=== PATIENT | female | born 1970 | race Hispanic/Latino ===

== ENCOUNTER 2017-11-28 18:02 | Emergency (ER) | payer SELFPAY ==
[2017-11-28 18:23] VITALS: BP 163/81; TEMP 98.1; O2SAT 99
--- NOTE | 2017-11-28 18:48 | ED.PDOC ---
History of Present Illness - General Chief Complaint: Skin/Abrasion/Tear Stated Complaint: Rectal irritation Time Seen by Provider: 11/28/17 18:46 Source: patient Exam Limitations: language barrier - mild - History of Present Illness Initial Comments: the patient is a 47-year-old female presenting to the emergency room with what appears to be a large thrombosed external hemorrhoid. She has apparently had this for several weeks. She has occasionally had some blood in the stool with from it. She has apparently had a hemorrhoid in the past. The hemorrhoid here today is approximately 1 inch in length and a half inch in diameter. It is not currently bleeding. It does obviously contain clots. The patient is not having any symptoms of any anemia. She has had constipation problems in the past. Timing/Duration: 1 week Severity: moderate Improving Factors: nothing Worsening Factors: movement Associated Symptoms: denies symptoms Allergies/Adverse Reactions: Allergies NO KNOWN ALLERGY Allergy (Verified 11/28/17 18:38) Home Medications: Ambulatory Orders Hydrocortisone 25 mg Supp [Anusol-HC Suppository] 1 ea [place] Q8HR #20 sup 11/28/17 Review of Systems - Review of Systems Constitutional: States: no symptoms reported EENTM: States: no symptoms reported Respiratory: States: no symptoms reported Cardiology: States: no symptoms reported Gastrointestinal/Abdominal: States: see HPI Genitourinary: States: no symptoms reported Musculoskeletal: States: no symptoms reported Skin: States: no symptoms reported Neurological: States: no symptoms reported Endocrine: States: no symptoms reported All other Systems: No Change from Baseline Past Medical History (General) - Patient Medical History Hx Stroke: No Hx Congestive Heart Failure: No Hx Diabetes: No Surgical History: Hysterectomy - Vaccination History Hx Influenza Vaccination: No Hx Pneumococcal Vaccination: No - Social History Hx Tobacco Use: No Family Medical History - Family History Mother Family History: No Known Living Status: Still Living Physical Exam - Physical Exam General Appearance: Alert, Comfortable, No apparent distress Eye Exam: bilateral normal Ears, Nose, Throat: hearing grossly normal, normal ENT inspection Respiratory: no respiratory distress, no accessory muscle use Cardiovascular/Chest: normal peripheral pulses, no edema Gastrointestinal/Abdominal: non tender, soft Rectal Exam: other - the patient has a large external hemorrhoid at approximately 9:00. It is not bleeding. It does obviously contain a clot.digital rectal exam is not performed secondary to obvious pain. 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 The patient is to return to the emergency room if she has any significant bleeding. She can expect a small amount of blood with bowel movements for the next week or so. She is not having any symptoms of anemia currently. The patient needs to increase the fiber in her diet either with leafy vegetables or fibrous fruits. Celery, dary , apples, broccoli, Fall peppers, green beans, carrots are all good sources of fiber. Additionally she can take either FiberCon or Metamucil daily. She should also take MiraLAX 17 g 3 days a week for the next couple of months. This will help prevent any constipation and help keep further hemorrhoids from forming. She will be written for Anusol suppositories to use for the next couple of weeks. Additionally she can use Preparation H on the outside for 5 times daily for the next few weeks to help with the current hemorrhoid. The patient was offered hemorrhoidectomy here in the emergency room however has deferred. If she changes her mind and she can contact the local general surgeon to have it done or her primary care doctor. ER warnings were again given for any uncontrolled bleeding. Departure - Departure Clinical Impression: External hemorrhoid, thrombosed Disposition: Discharge to Home or Self Care Condition: Fair Departure Forms: ED Discharge - Pt. Copy, Patient Portal Self Enrollment Instructions: DI for Hemorrhoids Diet: regular diet - High-fiber Activity: increase activity as tolerated Referrals: ERIN MARTINEZ PA [Primary Care Provider] - 1-2 Weeks Prescriptions: Hydrocortisone 25 mg Supp [Anusol-HC Suppository] 1 ea WI Q8HR #20 sup Home Medications: Ambulatory Orders Hydrocortisone 25 mg Supp [Anusol-HC Suppository] 1 ea WI Q8HR #20 sup 11/28/17 Additional Instructions: the patient is a 47-year-old female presenting to the emergency room secondary to a large thrombosed external hemorrhoid. The patient is to return to the emergency room if she has any significant bleeding. She can expect a small amount of blood with bowel movements for the next week or so. She is not having any symptoms of anemia currently. The patient needs to increase the fiber in her diet either with leafy vegetables or fibrous fruits. Celery, dary , apples, broccoli, Fall peppers, green beans, carrots are all good sources of fiber. Additionally she can take either FiberCon or Metamucil daily. She should also take MiraLAX 17 g 3 days a week for the next couple of months. This will help prevent any constipation and help keep further hemorrhoids from forming. She will be written for Anusol suppositories to use for the next couple of weeks. Additionally she can use Preparation H on the outside for 5 times daily for the next few weeks to help with the current hemorrhoid. The patient was offered hemorrhoidectomy here in the emergency room however has deferred. If she changes her mind and she can contact the local general surgeon to have it done or her primary care doctor. ER warnings were again given for any uncontrolled bleeding. Print Language: Guatemalan
== END 2017-11-28 19:08 | disposition home or self-care (01) ==
LOC: ER 18:02
DX: K64.5 Perianal venous thrombosis (principal)

== ENCOUNTER 2020-10-15 17:05 | Emergency (ER) | payer SELFPAY ==
--- NOTE | 2020-10-15 18:24 | RAD ---
EXAM: Chest,1 View CLINICAL INDICATION: Chest pain COMPARISON: There is no previous study for comparison. FINDINGS: A single view of the chest was obtained. The heart size is normal. The pulmonary vascularity is unremarkable. The lungs are clear. There is no consolidation, infiltrate, pleural effusion, or pneumothorax. IMPRESSION: No evidence of active pulmonary disease. Electronically signed by: Srinivas Heredia MD 10/15/2020 6:22 PM [facility]
--- NOTE | 2020-10-15 19:10 | ED.PDOC ---
History of Present Illness - General Chief Complaint: Respiratory Problem Stated Complaint: chest wall pain Time Seen by Provider: 10/15/20 17:48 Source: patient, RN notes reviewed, Vital Signs reviewed Exam Limitations: no limitations - History of Present Illness Initial Comments: Patient is a 50-year-old female who presents with complaints of left chest wall pain and numbness intermittently in her left arm as well as some intermittent shortness of breath. This all started yesterday. Patient is also complained of some mild shortness of breath. Nothing seems to make it better or worse. It waxes and wanes in intensity. It is intermittent in nature. Patient diagnosed with Covid about 1 week ago. Timing/Duration: 24 hours, changing over time, intermittent Severity: moderate Improving Factors: nothing Worsening Factors: nothing Associated Symptoms: chest pain, shortness of breath Allergies/Adverse Reactions: Allergies NO KNOWN ALLERGY Allergy (Verified 11/28/17 18:38) Home Medications: Ambulatory Orders Hydrocortisone 25 mg Supp [Anusol-HC Suppository] 1 ea [place] Q8HR #20 sup 11/28/17 Methylprednisolone [Medrol Dose Nj] 4 mg PO DAILY 6 Days #21 tab 10/15/20 Review of Systems - Review of Systems Constitutional: States: see HPI, malaise. Denies: chills, diaphoresis, fever, w eakness EENTM: States: no symptoms reported. Denies: eye pain, blurred vision, double vision Respiratory: States: see HPI, short of breath. Denies: cough, wheezing Cardiology: States: see HPI, chest pain. Denies: palpitations, syncope Gastrointestinal/Abdominal: States: no symptoms reported. Denies: abdominal pain, diarrhea, nausea, vomiting Genitourinary: States: no symptoms reported. Denies: dysuria, frequency Musculoskeletal: States: no symptoms reported. Denies: back pain, joint pain, neck pain Skin: States: no symptoms reported. Denies: change in color, rash Neurological: States: see HPI, numbness - intermittently in left arm.. Denies: tingling, tremors, weakness Endocrine: States: no symptoms reported. Denies: increased hunger, increased thirst, increased urine Hematologic/Lymphatic: States: no symptoms reported. Denies: blood clots, easy bleeding All other Systems: Reviewed and Negative Past Medical History (General) - Patient Medical History Hx Stroke: No Hx Congestive Heart Failure: No Hx Diabetes: No - Vaccination History Hx Influenza Vaccination: No Hx Pneumococcal Vaccination: No - Social History Hx Tobacco Use: No Family Medical History - Family History Mother Family History: No Known Living Status: Still Living Physical Exam - Physical Exam General Appearance: Alert, Anxious, No apparent distress, Well Developed, Well Groomed, Well Hydrated, Well Nourished Eye Exam: bilateral normal Ears, Nose, Throat: hearing grossly normal, normal ENT inspection, normal pharynx Neck: full range of motion, supple Respiratory: chest non-tender, lungs clear, normal breath sounds, no respiratory distress, no accessory muscle use Cardiovascular/Chest: normal peripheral pulses, regular rate, rhythm, no edema, no gallop, no JVD, no murmur Progress - Progress Progress: Differential diagnosis: Acute VA, pneumonia, Covid side effects, CVA among others. 10/15/20 19:27 Patient's lab work is unremarkable. Chest x-ray does not show any pneumonia. EKG does not indicate cardiac ischemia and with a negative troponin highly unlikely to be ACS. Patient has a normal D-dimer. I suspect she does not have PE. I believe these are probably side effects from having Covid. Plan on discharge home with follow-up with PCP. 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 Additionally, she has some mild tenderness to palpation along the left side of her cervical spine. I discussed this plan of care with the patient she voices understanding and agreement. Fercho Sampson M.D. #[id number] - Results/Orders Results/Orders: EKG performed 15 October 2020 at 1715 hrs.: Normal sinus rhythm at 71 bpm, normal axis deviation, no ST or T wave changes concerning for acute ischemia, normal EKG. No comparison EKG available at this time. EXAM: Chest,1 View CLINICAL INDICATION: Chest pain COMPARISON: There is no previous study for comparison. FINDINGS: A single view of the chest was obtained. The heart size is normal. The pulmonary vascularity is unremarkable. The lungs are clear. There is no consolidation, infiltrate, pleural effusion, or pneumothorax. IMPRESSION: No evidence of active pulmonary disease. Electronically signed by: Srinivas Heredia MD 10/15/2020 6:22 PM CAD ENGINEER 10/15/20 17:49 Isolation:Airborne ONCE 10/15/20 18:00 Pulse Ox, Continuous Monitoring STAT 10/16/20 18:00 Pulse Ox, Continuous Monitoring STAT 10/17/20 18:00 Pulse Ox, Continuous Monitoring STAT Laboratory Results - last 24 hr 10/15/20 10/15/20 10/15/20 18:00 18:00 18:00 WBC 3.6 L RBC 4.58 Hgb 14.1 Hct 40.3 MCV 88.1 MCH 30.7 MCHC 34.9 RDW 13.2 Plt Count 199 MPV 7.7 Absolute Neuts (auto) 1.80 Absolute Lymphs (auto) 1.40 Absolute Monos (auto) 0.30 Absolute Eos (auto) 0.10 Absolute Basos (auto) 0.00 Neutrophils % 51.4 Lymphocytes % 38.4 Monocytes % 7.8 Eosinophils % 1.8 Basophils % 0.6 PTT (SP) 26.8 D-Dimer, Quantitative < 131.0 L Sodium 138 Potassium 3.6 Chloride 103 Carbon Dioxide 26 Anion Gap 12.6 BUN 8 Creatinine 0.64 BUN/Creatinine Ratio 12.5 Random Glucose 123 H Serum Osmolality 275.4 Calcium 8.2 L Magnesium 2.5 Total Bilirubin 0.5 AST 25 ALT 28 Alkaline Phosphatase 59 LD Total 130 Creatine Kinase 52 Troponin I C-Reactive Protein 1.0 B-Natriuretic Peptide < 15.0 Serum Total Protein 7.7 Albumin 4.6 Globulin 3.1 Albumin/Globulin Ratio 1.5 10/15/20 18:00 WBC RBC Hgb Hct MCV MCH MCHC RDW Plt Count MPV Absolute Neuts (auto) Absolute Lymphs (auto) Absolute Monos (auto) Absolute Eos (auto) Absolute Basos (auto) Neutrophils % Lymphocytes % Monocytes % Eosinophils % Basophils % PTT (SP) D-Dimer, Quantitative Sodium Potassium Chloride Carbon Dioxide Anion Gap BUN Creatinine BUN/Creatinine Ratio Random Glucose Serum Osmolality Calcium Magnesium Total Bilirubin AST ALT Alkaline Phosphatase LD Total Creatine Kinase Troponin I < 0.02 C-Reactive Protein B-Natriuretic Peptide Serum Total Protein Albumin Globulin Albumin/Globulin Ratio Departure - Departure Clinical Impression: Cervical radiculopathy, COVID-19 Time of Disposition: 19:30 Disposition: Discharge to Home or Self Care Condition: Good Departure Forms: ED Discharge - Pt. Copy, Patient Portal Self Enrollment Instructions: Radiculopathy (DC), Coronavirus Disease 2019 (COVID-19) (DC) Diet: resume usual diet Activity: increase activity as tolerated Referrals: ERIN MARTINEZ PA [Primary Care Provider] - 1-5 Days Prescriptions: Methylprednisolone [Medrol Dose Nj] 4 mg PO DAILY 6 Days #21 tab Home Medications: Ambulatory Orders Hydrocortisone 25 mg Supp [Anusol-HC Suppository] 1 ea [place] Q8HR #20 sup 11/28/17 Methylprednisolone [Medrol Dose Nj] 4 mg PO DAILY 6 Days #21 tab 10/15/20
[2020-10-15 19:43] VITALS: BP 127/90; O2SAT 94
[2020-10-15 19:47] VITALS: TEMP 98
== END 2020-10-15 19:45 | disposition home or self-care (01) ==
LOC: ER 17:05
DX: U07.1 COVID-19 (principal); M54.12 Radiculopathy, cervical region; R07.89 Other chest pain